=== PATIENT | male | born 2000 | race Two or more races ===

== ENCOUNTER 2024-02-08 13:01 | Emergency (ER) | payer OTHER ==
[~2024-02-08] VITALS: Ht 180.3 cm; Wt 58.1 kg
[2024-02-08] MEDS ORDERED: NAPR-746 PO (14:23)
[2024-02-08] MEDS ORDERED: CLIN1CAP70 PO (14:23)
[2024-02-08 14:29] VITALS: BP 115/72; PULSE 72; RESP 18; TEMP 98.9; O2SAT 100
[2024-02-08] MEDS: IBUPROFEN 800 MG TAB PO ONE (14:36)
== END 2024-02-08 15:05 | disposition home or self-care (01) ==
LOC: ER 13:01
DX: L60.0 Ingrowing nail (principal); Z79.899 Other long term (current) drug therapy
CPT/HCPCS: 11730